=== PATIENT | male | born 1960 | race Caucasian/White ===

== ENCOUNTER 2018-07-06 10:40 | Day surgery (SDC) | payer OTHER ==
[2018-07-04 10:38] VITALS: BMI 38.6
[2018-07-06] MEDS ORDERED: BUPIVACAINE HCL/PF 0.5% (5MG/ML) 10 ML VIAL ONE (11:27)
[2018-07-06] MEDS ORDERED: ROCURONIUM BROMIDE 50 MG/5 ML VIAL ONE ×2 (11:28→13:27)
[2018-07-06] MEDS ORDERED: PROPOFOL 20 ML ONE ×2 (11:28→12:37)
[2018-07-06] MEDS ORDERED: MIDAZOLAM HCL 2 MG/2 ML SINGLE DOSE VIAL ONE (11:29)
[2018-07-06] MEDS ORDERED: ceFAZolin SODIUM 1 GM VIAL ONE (12:47)
[2018-07-06] MEDS ORDERED: ceFAZolin SODIUM 1 GM VIAL IVPB ONE ×2 (12:47→12:48)
[2018-07-06] MEDS ORDERED: BUPIVACAINE HCL/PF 0.5% (5MG/ML) 10 ML VIAL IJ ONE (14:09)
[2018-07-06] MEDS ORDERED: NEOSTIGMINE METHYLSULFATE 0.5 MG/ML - 10 ML MDV ONE (14:11)
[2018-07-06] MEDS ORDERED: GLYCOPYRROLATE 0.2 MG/1 ML VIAL ONE (14:11)
[2018-07-06] MEDS ORDERED: KETOROLAC TROMETHAMINE 30 MG/1 ML VIAL ONE (14:11)
[2018-07-06] MEDS ORDERED: ACETAMINOPHEN INJECTION 100 ML IVPB ONE (14:30)
[2018-07-06] MEDS ORDERED: ACETAMINOPHEN 1000 MG/100 ML VIAL (NON FORMULARY) IVPB ONE (14:34)
[2018-07-06] MEDS ORDERED: ONDANSETRON 4 MG/2 ML VIAL IVPUSH PRN (14:34)
[2018-07-06] MEDS ORDERED: LACTATED RINGERS SOLUTION 1,000 ML IV SCH (14:45)
[2018-07-06] MEDS ORDERED: oxyCODONE HCL 5 MG TABLET PO ONE (15:49)
[2018-07-06] MEDS ORDERED: oxyCODONE HCL 5 MG TABLET ONE (15:53)
--- NOTE | 2018-07-06 15:58 | OP ---
DATE OF OPERATION: 07/06/2018 PREOPERATIVE DIAGNOSIS: Left inguinal hernia. POSTOPERATIVE DIAGNOSIS: Sliding left inguinal hernia. PROCEDURE: Open repair sliding left inguinal hernia with mesh/intermediate wound closure (8 cm). SURGEON: Bari Zapata MD METER READER INSPECTOR: Parag Oviedo MD ANESTHESIA: Anna Ennis MD (general) HISTORY: A 58-year-old man with a longstanding large left inguinal hernia who presents for a repair with a history of contralateral repair. Indications, alternatives, and possible complications reviewed. Consent obtained. PROCEDURE: With the patient in the supine position, and after general anesthesia, the left groin was prepped and draped in usual fashion using Chlorhexidine. An 8 cm left groin incision was made between the left hip and pubic tubercle and left anterior iliac spine. The incision was deepened into the subcutaneous space. All identified vessels in the subcutaneous space were clamped, divided and ligated. The incision was deepened to the level of the external oblique aponeurosis where the external oblique aponeurosis was incised in the direction of its fibers through the external ring. The ilioinguinal nerve was identified, spared and retracted. The undersurface was split. The external oblique aponeurosis was swept clean to the level of the pubic tubercle. At the pubic tubercle the Larissa drain was placed around the cord structures and the large hernia sac. The cord was skeletonized of its cremasteric fibers exercising care not to enter the vas or the cord structures. The sac was mobilized to the level of the preperitoneal fat and inferior epigastric vessels. A portion of the wall of the sac was made up by the sigmoid colon in the form of a sliding hernia. Therefore, the hernia sac and the appendage contents were entirely reduced. Now turning our attention to the inguinal floor, transversalis fascia was paper thin and attenuated throughout its entire length. It was split throughout its length. The preperitoneal tissues were further reduced. Davol plug was placed into the preperitoneal space and fanned out under the deep musculature where it was tacked and placed circumferentially with interrupted 2-0 Prolene sutures. The attenuated transversalis fascia was imbricated in 2 layers over the Davol plug, leaving the plug entirely in the preperitoneal space. This was accomplished using a continuous 2-0 Prolene suture, beginning at the pubic tubercle, progressing superiorly and reconstructing the internal ring to permit only a fingertip entrance, and then returning to the pubic tubercle. An overlying mesh was then fashioned about the entire inguinal floor intact and placed circumferentially with interrupted 2-0 Prolene sutures. The superior aspect of the mesh was keyholed and wrapped around the cord buttressing the internal ring. The cord and ilioinguinal nerves were then returned to their anatomic positions. The external oblique aponeurosis was closed using a continuous 3-0 Vicryl suture. After adequate hemostasis the wound was closed in layers. The Amos fascia was approximated using interrupted 3-0 chromic sutures. The subcutaneous tissues were approximated with interrupted 3-0 plain sutures. The subcuticular layer was approximated with 4-0 Biosyn sutures in a continuous fashion. Prior to complete closured, 10 mL of 0.5% Marcaine was freely instilled in the wound. Dermabond was applied. The procedure was terminated. The instruments were correct. Estimated blood loss minimal. Specimens none. Drains none. Implant: Mesh plug. The patient tolerated the procedure and the procedure was terminated. Ben [id number] MTDD
[2018-07-06 18:43] VITALS: BP 144/92; PULSE 103; TEMP 97.4
== END 2018-07-06 18:30 | disposition home or self-care (01) ==
LOC: JASU-SURG 10:40
PROVIDERS: ATTEND Surgery
PROC: 0YU60JZ Supplement Left Inguinal Region with Synthetic Substitute, Open Approach (ICD-10-PCS; principal; 2018-07-06 12:30)
DX: K40.90 Unilateral inguinal hernia, without obstruction or gangrene, not specified as recurrent (principal)
CPT/HCPCS: 94760; J0131